=== PATIENT | male | born 1940 | race Caucasian/White ===

== ENCOUNTER 2016-12-19 08:54 | Emergency (ER) | payer OTHER ==
[~2016-12-19] VITALS: Ht 177.8 cm; Wt 113.2 kg
[2016-12-19] MEDS ORDERED: MAGN64TASA PO (09:14)
[2016-12-19] MEDS ORDERED: [UNRECOGNIZED DRUG - OTHER] PO (09:14)
[2016-12-19] MEDS ORDERED: METF500T13 PO (09:14)
[2016-12-19] MEDS ORDERED: HYDR10TAB PO (09:14)
[2016-12-19] MEDS ORDERED: FAMO40TA3 PO (09:14)
[2016-12-19] MEDS ORDERED: SERT50TA PO (09:14)
[2016-12-19] MEDS ORDERED: ISOS20TA PO (09:14)
[2016-12-19] MEDS ORDERED: ENTR1TAB PO (09:14)
[2016-12-19] MEDS ORDERED: SIMV40TA2 PO (09:14)
[2016-12-19] MEDS ORDERED: ASPI81TA21 PO (09:14)
--- NOTE | 2016-12-19 10:05 | REP ---
Left knee series: Five views. History: Trauma. Findings: Five views of the left knee demonstrate vascular calcification and some dystrophic periarticular calcification. No fracture or joint effusion is seen. Impression: No acute abnormality. Signed by Luis Antonio Nguyen MD 12/19/2016 11:03 A
[2016-12-19 10:23] VITALS: BP 106/53
== END 2016-12-19 10:30 | disposition home or self-care (01) ==
LOC: M ED 08:54
DX: S83.92XA Sprain of unspecified site of left knee, initial encounter (principal); S80.02XA Contusion of left knee, initial encounter; S80.212A Abrasion, left knee, initial encounter; W10.8XXA Fall (on) (from) other stairs and steps, initial encounter; Y92.099 Unspecified place in other non-institutional residence as the place of occurrence of the external cause; Y93.01 Activity, walking, marching and hiking; Y99.9 Unspecified external cause status

== ENCOUNTER 2017-09-26 09:26 | Day surgery (SDC) | payer OTHER ==
[2017-09-26] MEDS: PHENYLEPHRINE 2.5% OPHTH SOL 2ML OS (10:29)
[2017-09-26] MEDS: TROPICAMIDE 1% OPHTH SOLN 2ML OS (10:29)
[2017-09-26] MEDS: PROPARACAINE 0.5% OPHTH SOL 15ML OS (10:29)
[2017-09-26] MEDS: OFLOXACIN 0.3 % (OCUFLOX) OPTH SOL 5ML OS (10:29)
[2017-09-26 10:30] LABS: BEDSIDE GLUCOSE 105 MG/DL (83-110)
[2017-09-26] MEDS ORDERED: fentaNYL 100 MCG/2 ML INJECTION (J3010) As Ordered (11:33)
[2017-09-26] MEDS ORDERED: MIDAZOLAM INJ 2 MG/2 ML VIAL (J2250) As Ordered (11:33)
[2017-09-26] MEDS: POVIDONE-IODINE 5% OPHTH PREP SOL 30ML As Ordered (12:02)
[2017-09-26] MEDS: DUOVISC (0.50ML VISCOAT/0.55ML PROVISC) OPHTH KIT As Ordered (12:07)
[2017-09-26] MEDS: BALANCED SALT IRRIGATION SOLUTION 500ML BAG (FOR OR EYE MACHINE) As Ordered (12:07)
[2017-09-26] MEDS: LIDOCAINE 0.75%/EPINEPHRINE 0.025% IN BSS 1ML SYR INTRACAMERAL (OR ONLY) As Ordered (12:07)
[2017-09-26] MEDS: CEFUROXIME 1MG/0.1ML INTRACAMERAL INJ As Ordered (12:07)
== END 2017-09-26 12:50 | disposition home or self-care (01) ==
LOC: M SDC 09:26
DX: H25.12 Age-related nuclear cataract, left eye (principal); I11.9 Hypertensive heart disease without heart failure; I42.0 Dilated cardiomyopathy; I50.42 Chronic combined systolic (congestive) and diastolic (congestive) heart failure; I44.0 Atrioventricular block, first degree; R94.31 Abnormal electrocardiogram [ECG] [EKG]; I47.2 Ventricular tachycardia; I25.2 Old myocardial infarction; R29.898 Other symptoms and signs involving the musculoskeletal system; R06.02 Shortness of breath; E11.9 Type 2 diabetes mellitus without complications; M12.9 Arthropathy, unspecified; Z79.899 Other long term (current) drug therapy; Z79.82 Long term (current) use of aspirin; Z79.84 Long term (current) use of oral hypoglycemic drugs; Z95.810 Presence of automatic (implantable) cardiac defibrillator; Z95.0 Presence of cardiac pacemaker
CPT/HCPCS: 66984

== ENCOUNTER 2017-10-03 08:16 | Day surgery (SDC) | payer OTHER ==
[2017-10-03] MEDS: PROPARACAINE 0.5% OPHTH SOL 15ML OD (08:30)
[2017-10-03] MEDS: PHENYLEPHRINE 2.5% OPHTH SOL 2ML OD (08:35)
[2017-10-03] MEDS: TROPICAMIDE 1% OPHTH SOLN 2ML OD (08:40)
[2017-10-03] MEDS: OFLOXACIN 0.3 % (OCUFLOX) OPTH SOL 5ML OD (08:45)
[2017-10-03 09:08] LABS: BEDSIDE GLUCOSE 113 MG/DL (83-110)
[2017-10-03] MEDS ORDERED: fentaNYL 100 MCG/2 ML INJECTION (J3010) As Ordered (09:43)
[2017-10-03] MEDS ORDERED: MIDAZOLAM INJ 2 MG/2 ML VIAL (J2250) As Ordered (09:43)
[2017-10-03] MEDS: POVIDONE-IODINE 5% OPHTH PREP SOL 30ML As Ordered (10:17)
[2017-10-03] MEDS: LIDOCAINE 0.75%/EPINEPHRINE 0.025% IN BSS 1ML SYR INTRACAMERAL (OR ONLY) As Ordered (10:19)
[2017-10-03] MEDS: CEFUROXIME 1MG/0.1ML INTRACAMERAL INJ As Ordered (10:19)
[2017-10-03] MEDS: DUOVISC (0.50ML VISCOAT/0.55ML PROVISC) OPHTH KIT As Ordered (10:19)
[2017-10-03] MEDS: BALANCED SALT IRRIGATION SOLUTION 500ML BAG (FOR OR EYE MACHINE) As Ordered (10:19)
== END 2017-10-03 10:58 | disposition home or self-care (01) ==
LOC: M SDC 08:16
DX: H25.11 Age-related nuclear cataract, right eye (principal); I10 Essential (primary) hypertension; E11.9 Type 2 diabetes mellitus without complications; M12.9 Arthropathy, unspecified; I25.10 Atherosclerotic heart disease of native coronary artery without angina pectoris; I25.2 Old myocardial infarction; E78.5 Hyperlipidemia, unspecified; R29.898 Other symptoms and signs involving the musculoskeletal system; R06.02 Shortness of breath; I42.0 Dilated cardiomyopathy; I50.42 Chronic combined systolic (congestive) and diastolic (congestive) heart failure; I44.0 Atrioventricular block, first degree; I47.2 Ventricular tachycardia; R94.31 Abnormal electrocardiogram [ECG] [EKG]; E66.01 Morbid (severe) obesity due to excess calories; Z68.37 Body mass index [BMI] 37.0-37.9, adult; Z88.8 Allergy status to other drugs, medicaments and biological substances; Z79.899 Other long term (current) drug therapy; Z95.810 Presence of automatic (implantable) cardiac defibrillator; Z95.0 Presence of cardiac pacemaker
CPT/HCPCS: 66984

== ENCOUNTER 2018-01-27 09:41 | Emergency (ER) | payer OTHER ==
[2018-01-27] MEDS: ASPIRIN 81 MG CHEW TABLET PO (10:00)
[2018-01-27 10:18] LABS: BASO # 0.1 10^3/uL (0.0-0.2); BASO % 0.8 % (0.0-1.0); EOS # 0.2 10^3/uL (0.0-0.50); EOS % 3.5 % (0.0-3.0); HEMATOCRIT 33.4 % (42.0-52.0); IMMATURE GRANULOCYTE % 0.6 % (0-3.0); LYMPH # 1.5 10^3/uL (1.5-4.5); LYMPH % 24.1 % (24.0-44.0); MEAN CORPUSCULAR HEMOGLOBIN 29.4 pg (27.0-33.0); MEAN CORPUSCULAR HGB CONC 32.9 g/dl (32.0-36.5); MEAN CORPUSCULAR VOLUME 89.3 fl (80.0-96.0); MONO # 0.4 10^3/uL (0.0-0.8); MONO % 5.7 % (0.0-5.0); NEUTROPHILS # 4.1 10^3/uL (1.8-7.7); NEUTROPHILS % 65.3 % (36.0-66.0); PLATELET COUNT, AUTOMATED 196 10^3/uL (150-450); RED BLOOD COUNT 3.74 10^6/uL (4.30-6.10); RED CELL DISTRIBUTION WIDTH 14.3 % (11.5-14.5); WHITE BLOOD COUNT 6.3 10^3/uL (4.0-10.0)
[2018-01-27] MEDS: NITROGLYCERIN 0.4 MG SUBL TABLET SL (10:24)
[2018-01-27 10:37] LABS: INR 0.95; PARTIAL THROMBOPLASTIN TIME 28.2 SECONDS (25.4-37.6); PROTHROMBIN TIME 12.7 SECONDS (12.1-14.4)
[2018-01-27 10:46] LABS: ALBUMIN/GLOBULIN RATIO 0.83 (1.00-1.93); ALKALINE PHOSPHATASE 79 U/L (45-117); ALT/SGPT 18 U/L (12-78); ANION GAP 8 MEQ/L (8-16); AST/SGOT 13 U/L (7-37); BILIRUBIN,DIRECT 0.2 MG/DL (0.0-0.2); BILIRUBIN,TOTAL 0.7 MG/DL (0.2-1.0); BLOOD UREA NITROGEN 25 MG/DL (7-18); CALCIUM LEVEL 8.1 MG/DL (8.8-10.2); CARBON DIOXIDE LEVEL 24 MEQ/L (21-32); CHLORIDE LEVEL 114 MEQ/L (98-107); CK-MB VALUE MASS 1.3 NG/ML (<3.6); CPK CREATINE PHOSPHOKINASE 60 U/L (39-308); CREATININE FOR GFR 1.36 MG/DL (0.70-1.30); GLUCOSE, FASTING 111 MG/DL (70-100); LIPASE 129 U/L (73-393); MB/CK RELATIVE INDEX 2.16 (< OR =4); POTASSIUM SERUM 4.3 MEQ/L (3.5-5.1); SODIUM LEVEL 146 MEQ/L (136-145); TOTAL PROTEIN 6.6 GM/DL (6.4-8.2); TROPONIN I < 0.02 NG/ML (< 0.10)
[2018-01-27] MEDS ORDERED: ISOVUE-370 76% 100ML VIAL (Q9967) As Ordered (11:15)
[2018-01-27 16:21] LABS: CPK CREATINE PHOSPHOKINASE 132 U/L (39-308); TROPONIN I < 0.02 NG/ML (< 0.10)
[2018-01-27 16:22] LABS: CK-MB VALUE MASS 1.3 NG/ML (<3.6); MB/CK RELATIVE INDEX 0.98 (< OR =4)
== END 2018-01-27 17:41 | disposition home or self-care (01) ==
LOC: M ED 09:41
DX: R07.9 Chest pain, unspecified (principal); R94.31 Abnormal electrocardiogram [ECG] [EKG]; E11.9 Type 2 diabetes mellitus without complications; I10 Essential (primary) hypertension; E78.5 Hyperlipidemia, unspecified; K21.9 Gastro-esophageal reflux disease without esophagitis; N40.0 Benign prostatic hyperplasia without lower urinary tract symptoms; F33.9 Major depressive disorder, recurrent, unspecified; Z95.0 Presence of cardiac pacemaker; Z87.891 Personal history of nicotine dependence; Z88.8 Allergy status to other drugs, medicaments and biological substances; Z79.84 Long term (current) use of oral hypoglycemic drugs; Z79.899 Other long term (current) drug therapy; Z79.82 Long term (current) use of aspirin
CPT/HCPCS: Q9967

== ENCOUNTER 2018-11-23 19:39 | Inpatient (IN) | payer MEDICARE, OTHER ==
[~2018-11-23] VITALS: Ht 177.8 cm; Wt 111.4 kg
[~2018-11-23 19:39] MED LIST: ASPI81TA21 PO; CHLO125TA; ENTR1TAB PO; ENTR1TAB7 PO; FAMO40TA3 PO; HYDR10TAB PO; ISOS20TA PO; MAGN64TASA PO; METF500T13 PO; SERT-141 PO; SIMV40TA2 PO; VALS1TAB67; [UNRECOGNIZED DRUG - OTHER] PO
[2018-11-23] MEDS ORDERED: NS 500 ML IV ONE (21:00)
[2018-11-23 21:35] LABS: BASO # 0.1 10^3/uL (0.0-0.2); BASO % 0.9 % (0.0-1.0); EOS # 0.3 10^3/uL (0.0-0.50); EOS % 3.4 % (0.0-3.0); HEMATOCRIT 38.4 % (42.0-52.0); HEMOGLOBIN 12.5 g/dl (13.5-17.5); LYMPH # 2.5 10^3/uL (1.5-4.5); LYMPH % 32.8 % (24.0-44.0); MEAN CORPUSCULAR HEMOGLOBIN 28.8 pg (27.0-33.0); MEAN CORPUSCULAR HGB CONC 32.6 g/dl (32.0-36.5); MEAN CORPUSCULAR VOLUME 88.5 fl (80.0-96.0); MONO # 0.6 10^3/uL (0.0-0.8); MONO % 8.5 % (0.0-5.0); NEUTROPHILS # 4.1 10^3/uL (1.8-7.7); PLATELET COUNT, AUTOMATED 188 10^3/uL (150-450); RED BLOOD COUNT 4.34 10^6/uL (4.30-6.10); WHITE BLOOD COUNT 7.6 10^3/uL (4.0-10.0)
[2018-11-23 22:07] LABS: ALBUMIN 3.5 GM/DL (3.2-5.2); BILIRUBIN,DIRECT 0.2 MG/DL (0.0-0.2); BILIRUBIN,TOTAL 0.9 MG/DL (0.2-1.0); CALCIUM LEVEL 8.8 MG/DL (8.8-10.2); CREATININE FOR GFR 1.37 MG/DL (0.70-1.30); GLOMERULAR FILTRATION RATE 53.5 (>42); POTASSIUM SERUM 4.2 MEQ/L (3.5-5.1); TOTAL PROTEIN 6.5 GM/DL (6.4-8.2)
--- NOTE | 2018-11-23 22:46 | REPVR ---
EXAM: CT Abdomen and Pelvis Without Contrast EXAM DATE/TIME: 11/23/2018 9:09 PM CLINICAL HISTORY: 77 years old, male; Pain; Other: Suprapubic; Additional info: Dysuria, known stone, suprapubic pain TECHNIQUE: Imaging protocol: Axial computed tomography images of the abdomen and pelvis without contrast. Coronal and sagittal reformatted images were created and reviewed. Radiation optimization: All CT scans at this facility use at least one of these dose optimization techniques: automated exposure control; mA and/or kV adjustment per patient size (includes targeted exams where dose is matched to clinical indication); or iterative reconstruction. COMPARISON: No relevant prior studies available. FINDINGS: Small calcified granuloma at the left lung base. Lung bases are otherwise clear. No pleural or pericardial effusion. Within the limits of unenhanced examination, the liver, spleen, pancreas and adrenals are grossly normal. Gallbladder is somewhat contracted. There is a calcified gallstone in the dependent portion of the gallbladder lumen measuring up to [address] evidence of cholecystitis. There is asymmetric right perinephric stranding. There is moderate asymmetric hydronephrosis of the right intrarenal collecting system and right ureter. Findings are due to at least a partially obstructing urolith at the right ureterovesical junction measuring up to 4.5 mm in diameter. Probable peripelvic cysts in the left kidney. Cortical cyst in the left kidney measuring up to 3.6 cm. Nonobstructing calcification within a left lower pole renal calyx measuring less than 4 mm. No evidence of left ureterolithiasis or obstructive uropathy. Atherosclerotic changes identified within the abdominal aorta and aortic branch vessels with no evidence of aneurysmal dilatation. Small bowel loops are grossly normal. There are left-sided colonic diverticular changes. No evidence of enteric obstruction or diverticulitis. Pelvic organs are grossly normal. No free fluid in the pelvis. Central and anterior compression deformity of L3 with loss of vertebral body height of approximately 40%. Acuity cannot be determined with certainty. Osseous structures are otherwise unremarkable for age. IMPRESSION: Moderate asymmetric right perinephric stranding and right hydronephrosis. Findings are due to at least a partially obstructing urolith at the right UVJ measuring up to 4.5 mm. Nonobstructing calculus within a left lower pole renal calyx. No evidence of left obstructive uropathy. Moderate colonic diverticular changes with no evidence of diverticulitis. Cholelithiasis with no CT evidence of cholecystitis. Electronically signed by: Austen Sultana On 11/23/2018 22:46:41 PM
[2018-11-23] MEDS ORDERED: DEXTROSE 50% 50 ML SYRINGE IV PRN (23:00)
[2018-11-23] MEDS ORDERED: GLUCAGON FOR INJ 1 MG VIAL (J1610) SC PRN (23:00)
[2018-11-23] MEDS ORDERED: ACETAMINOPHEN TAB 650MG DOSE (2X325MG) PO PRN (23:00)
[2018-11-23] MEDS ORDERED: GLUCOSE 4 GM CHEW TABLET PO PRN (23:00)
[2018-11-23] MEDS: NS 1,000 ML IV SCH (23:32)
[2018-11-24] VITALS (9 sets, daily range): BP systolic 137–173; BP diastolic 66–85
[2018-11-24] MEDS: NS 1,000 ML IV SCH ×3 (01:47→21:05)
[2018-11-24] MEDS: CIPROFLOXACIN 200 MG in APPROPRIATE DILUENT 1 EA IV SCH ×2 (01:48→12:32)
[2018-11-24] MEDS: HEPARIN SOD (PORCINE) 5000 UNITS/ML VIAL SC SCH ×2 (06:00→18:00)
--- NOTE | 2018-11-24 06:02 | ECGEPIP ---
[facility] - ED Test Date: 2018-11-23 Pat Name: AUTSIN LEAVITT Department: Room: - Gender: Male Housing Development Specialist: KK : [id number] Requested By: PATRICE PORTER PA-C. Order Number: [id number] Reading MD: Bob Serrano Measurements Intervals [place] Rate: 61 P: AR: -1 QRS: QRSD: 106 T: QT: 398 QTc: 402 Interpretive Statements SINUS RHYTHM WITH FIRST DEGREE AV BLOCK BORDERLINE LEFT AXIS DEVIATION POSSIBLE PRIOR ANTERIOR INFARCT NONSPECIFIC ST & T-WAVE ABNORMALITY SIMILAR TO 01/27/18 Electronically Signed on 11-24-2018 6:02:04 EDT by Bob Serrano
[2018-11-24] MEDS: HumaLOG INSULIN (NovoLOG) PER UNIT SC SCH ×3 (07:30→17:30)
--- NOTE | 2018-11-24 07:51 | HPE ---
DATE OF ADMISSION: 11/23/2018 PRIMARY CARE PROVIDER: Dr. Mccoy VP CORPORATE DEVELOPMENT: Dr. Casas CHIEF COMPLAINT: Hematuria. HISTORY OF PRESENT ILLNESS: Patient is a 77-year-old white male with several chronic medical conditions listed below who came to the hospital for evaluation of hematuria. History provided by himself as well as his . Per the patient, back to September he developed right flank pain and he went to [facility] and he had a CT scan done which demonstrated he had a right ureteral stone. Since then, he is following with urologist Dr. Celaya. Since he was asymptomatic, he did not go for any procedures. However, after a few days he had some mild right flank pain. Today he has some blood in his urine and decided to come to the ER for further evaluation. In the ER, he had a CT of the abdomen and pelvis done which demonstrated he had some stones in his right ureter. Urology was consulted in the ER. The medicine team was requested to admit him. REVIEW OF SYSTEMS: Denies fevers. No chills. No headache. No blurry vision. No shortness of breath. No chest pain. No nausea. No vomiting. No diarrhea. No abdominal pain. All other systems were reviewed, but were negative. PAST MEDICAL HISTORY: 1. Hypertension. 2. Type 2 diabetes. 3. Dyslipidemia. 4. Coronary artery disease (CAD). PAST SURGICAL HISTORY: 1. Status post appendectomy. 2. Kidney stone removal. 3. Pacemaker and defibrillator placed. He follows up with Dr. Casas. ALLERGIES: No known drug allergies. MEDICATIONS: Reviewed. FAMILY HISTORY: His father had a history of type 2 diabetes. PHYSICAL EXAMINATION: VITAL SIGNS: Temperature 97.2, heart rate 62, respiratory rate 18, blood pressure 160/74, oxygen saturation 98% on room air. GENERAL: He is awake, alert and oriented times three. He is not in acute distress. HEENT: Atraumatic. Pupils equal, round, and reactive to light. No jaundice. Extraocular muscles intact. Ears, nose and throat are normal. Mouth mucous not dry. NECK: No jugular venous distention (JVD). No bruits. LUNGS: Clear, no wheezing, no crackles. HEART: S1, S2 regular, no murmur. ABDOMEN: Soft. Bowel sounds positive. Nontender. LOWER EXTREMITIES: No edema in bilateral lower extremities. NEUROLOGIC: Nonfocal. SKIN: No rash. PSYCHIATRIC: No acute psychosis. DIAGNOSTIC LABORATORY STUDIES: Including the following CBC with differential WBC 7.6, hemoglobin and hematocrit 12.3/38, platelets 188. Sodium 142, potassium 4.2, BUN 26, creatinine 1.3, glucose 113. IMPRESSION: 1. Right ureteral stone with hematuria. 2. Hypertension. 3. Dyslipidemia. 4. Type 2 diabetes. 5. Status post pacemaker and defibrillator implant. PLAN: Patient will be admitted to the medical/surgical floor. I will continue his regular medications. Will keep him nothing by mouth and gently hydrate with normal saline with IV Cipro. Urologist plans to do cystoscope and ureter stenting tomorrow. OBIE
[2018-11-24] MEDS ORDERED: PROPOFOL 200 MG/20 ML VIAL As Ordered ONE (10:29)
[2018-11-24] MEDS ORDERED: fentaNYL 100 MCG/2 ML INJECTION (J3010) As Ordered ONE (10:29)
[2018-11-24] MEDS ORDERED: ONDANSETRON 4MG/2ML VIAL (J2405) As Ordered ONE (10:29)
[2018-11-24] MEDS ORDERED: dexameTHASONE 4 MG/ML 1ML VIAL (J1100) As Ordered ONE (10:29)
[2018-11-24] MEDS ORDERED: LIDOCAINE 2% INJ 100 MG/5 ML SDV (FOR ANES.) As Ordered ONE (10:29)
[2018-11-24] MEDS ORDERED: ROCURONIUM BROMIDE 50 MG/5 ML VIAL As Ordered ONE (10:29)
[2018-11-24] MEDS ORDERED: MIDAZOLAM INJ 2 MG/2 ML VIAL (J2250) As Ordered ONE (10:30)
--- NOTE | 2018-11-24 12:04 | IPNPDOC ---
Date Seen The patient was seen on 11/24/18. Progress Note SUBJECTIVE: Mr. Mohamud is a 77-year-old male who presented with gross hematuria. He is seen on bedside rounds this morning. He states that he is having little to no pain this morning, he only reports pressure and diffuse discomfort in his lower abdomen/bladder region. The pain is much improved from yesterday on admission. Patient denies visible blood in his urine today. He also reports orthostatic hypotension and dizziness when he stands up quickly. He denies cp, sob, nausea, vomiting, diarrhea, blood in his stool, headache, fever, chills and abdominal pain. Retrograde pyelogram scheduled for this afternoon. OBJECTIVE PHYSICAL EXAMINATION: VITAL SIGNS: Please see below. GENERAL: Patient is seen sitting pleasantly in bed. In no apparent distress. AAOx3, speaking in complete sentences. He is a little hard of hearing. HEENT: Moist mucous membranes, EOMI, No JVD appreciated CARDIOVASCULAR: S1 S2 regular no additional heart sounds appreciated RESPIRATORY: Clear to auscultation bilaterally, no wheezing, rales or rhonchi appreciated ABDOMINAL: Bowel sounds present x4 abdomen. Abdomen soft, no tenderness to palpation, rebound, rigidity, or guarding., no hepatosplenomegaly or masses appreciated. EXTREMITIES: No clubbing cyanosis or edema NEUROLOGICAL: Spontaneously moves all 4 extremities, no focal deficits. PSYCHOLOGICAL: Appropriate affect LABORATORY DATA, IMAGING STUDIES, MICROBIOLOGY: Please see below. CT Abdomen and Pelvis: - Moderate asymmetric right perinephric stranding and right hydronephrosis. Findings are due to at least a partially obstructing urolith at the right UVJ measuring up to 4.5 mm. - Nonobstructing calculus within a left lower pole renal calyx. No evidence of left obstructive uropathy. - Moderate colonic diverticular changes with no evidence of diverticulitis. -Cholelithiasis with no CT evidence of cholecystitis. DVT prophylaxis ordered?: Heparin ASSESSMENT AND PLAN: This is a 77-year-old male that presents with right ureteral stone PROBLEMS: 1. Right ureteral stone with hematuria - Retrograde pyelogram scheduled for this afternoon - Continue with IVF and Cipro 2. Hypertension 3. Dyslipidemia 4. DM Type 2 - c/w Insulin Lispro 5. S/p pacemaker and defibrillator implant DISPOSITION: Patient is waiting to have retrograde pyelogram done this afternoon. He reports little to no pain today which is an improvement from admission. Continue with IVF and Cipro today. VS[facility]O Vital Signs Date Time Temp Pulse Resp B/P (MAP) Pulse Ox O2 Delivery O2 Flow Rate FiO2 11/24/18 06:00 97.0 73 20 155/85 (108) 97 11/24/18 00:12 Room Air I&O- Last 24 Hours up to 6 AM 11/24/18 06:00 Intake Total 700 ml Output Total 200 ml Balance 500 ml Laboratory Data 24H LABS Laboratory Tests 2 11/23/18 21:09: Immature Granulocyte % (Auto) 0.4, White Blood Count 7.6, Red Blood Count 4.34, Hemoglobin 12.5L, Hematocrit 38.4L, Mean Corpuscular Volume 88.5, Mean Corpuscular Hemoglobin 28.8, Mean Corpuscular Hemoglobin Concent 32.6, Red Cell Distribution Width 13.9, Platelet Count 188, Neutrophils (%) (Auto) 54.0, Lymphocytes (%) (Auto) 32.8, Monocytes (%) (Auto) 8.5H, Eosinophils (%) (Auto) 3.4H, Basophils (%) (Auto) 0.9, Neutrophils # (Auto) 4.1, Lymphocytes # (Auto) 2.5, Monocytes # (Auto) 0.6, Eosinophils # (Auto) 0.3, Basophils # (Auto) 0.1, Nucleated Red Blood Cells % (auto) 0.0, Urine Color YELLOW, Urine Appearance HAZY, Urine pH 5.0, Urine Specific [place] 1.020, Urine Protein 1+H, Urine Glucose (UA) NEGATIVE, Urine Ketones NEGATIVE, Urine Blood 3+H, Urine Nitrite NEGATIVE, Urine Bilirubin NEGATIVE, Urine Urobilinogen 0.2, Urine Leukocyte Esterase TRACEH, Urine WBC (Auto) 14H, Urine RBC (Auto) TNTCH, Urine Hyaline Casts (Auto) 0, Urine Bacteria (Auto) NEGATIVE, Urine Squamous Epithelial Cells 0, Urine Transitional Epithelial Cells <1, Urine Mucus (Auto) SMALL, Urine Sperm (Auto) , Anion Gap 5L, Glomerular Filtration Rate 53.5, Calcium Level 8.8, Aspartate Amino Transf (AST/SGOT) 15, Alanine Aminotransferase (ALT/SGPT) 16, Alkaline Phosphatase 75, Total Bilirubin 0.9, Direct Bilirubin 0.2, Total Protein 6.5, Albumin 3.5, Albumin/Globulin Ratio 1.17 11/24/18 05:38: Bedside Glucose (Misc Panel) 114H 11/24/18 11:31: Bedside Glucose (Misc Panel) 91 CBC/BMP Laboratory Tests 11/23/18 21:09 Red Blood Count 4.34, Mean Corpuscular Volume 88.5, Mean Corpuscular Hemoglobin 28.8, Mean Corpuscular Hemoglobin Concent 32.6, Red Cell Distribution Width 13.9, Neutrophils (%) (Auto) 54.0, Lymphocytes (%) (Auto) 32.8, Monocytes (%) (Auto) 8.5 H, Eosinophils (%) (Auto) 3.4 H, Basophils (%) (Auto) 0.9, Neutrophils # (Auto) 4.1, Lymphocytes # (Auto) 2.5, Monocytes # (Auto) 0.6, Eosinophils # (Auto) 0.3, Basophils # (Auto) 0.1 Microbiology Microbiology 11/23/18 Urine Culture, Received Pending GME ATTESTATION GME ATTESTATION My faculty preceptor for this patient encounter was physically present during the encounter and was fully available. All aspects of the patient interview, examination, medical decision making process, and medical care plan development were reviewed and approved by the faculty preceptor. The faculty preceptor is aware and concurs with the plan as stated in the body of this note and will attest to such by his/her cosignature. ATTENDING NOTE i have personally interviewed and examined the patient and discussed the plan of care with the resident / medical student . i agree with the above documentation with the following addendums Patient has AICD in place and after discussion with patient and seems like he has diastolic and systolic CHF, has CAD but no stents in aime past. He also has long history of renal stones with lithotripsy once in the past. Pateint follows with Dr Casas and the AICD was placed in 2015 and most recently interrogated in October. Will continue with IVF. Post procedure will monitor intake and output carefully to avoid fluid overload and acute exacerbation of CHF. Will hold metformin in hospital and give lispro sliding scale restart hydralazine and isosorbide after procedure and entresto tomorrow AMEYA ABREU S-3 Nov 24, 2018 12:04 CONRAD CARVER MD Nov 24, 2018 15:27
--- NOTE | 2018-11-24 13:08 | CR ---
DATE OF CONSULTATION: 11/23/2018 REASON FOR CONSULTATION: Distal right ureteral calculus. Edvin Mohamud is a 77-year-old male who presented to the emergency room today with worsening of his right sided flank pain due to a previously diagnosed right ureteral calculus that was being managed conservatively for over 2 months by his urologist in [place]. The patient came in today with worsening pain down in the suprapubic area and radiating down into his right testicle. CT scan of the abdomen was performed revealing a 6.7 mm right ureterovesical junction calculus with proximal hydronephrosis. The patient is being admitted for pain management and probable surgical intervention. PAST MEDICAL HISTORY: Significant for some cardiac disease with a pacemaker defibrillator having been placed, hypercholesterolemia, hypertension, type 2 diabetes. MEDICATIONS ON ADMISSION: Include aspirin, hydralazine, isosorbide, metformin, simvastatin. ALLERGIES: He claims to be allergic to CYCLOBENZAPRINE. PHYSICAL EXAMINATION: He is a fairly well appearing male in no acute distress. His abdomen is somewhat protuberant. He is tender in the right lower quadrant. There is no evidence of any rebound or guarding. There are no palpable masses. He has some moderate right costovertebral angle (CVA) tenderness. The remainder of his examination is unremarkable. LABORATORY STUDIES: Reveal a hematocrit of 38.4, with a hemoglobin of 12.5, and white cell count of 7.6. BUN and creatinine 26 over 1.37. ASSESSMENT: Distal right ureteral calculus with persistent pain of two months duration. PLAN: To admit the patient and start him on antibiotics and fluids. Will take him to the operating room tomorrow for ureteroscopy with laser lithotripsy. Please note, I had a discussion with the patient and his who are somewhat leery about having this done away from home, but by the same token are very concerned because they are bothered by their urologist's busy schedule and inability to address the matter which has been going on for over two months. I discussed with them the risks of the procedure including, but not limited to bleeding, infection, pain, inability to get a wire to the stone or proximal to the stone, proximal migration of the stone, need for a stent postoperatively. I have also offered them conservative management with fluids, antibiotics and pain medicine on an outpatient basis, at which point, they can either contact our office or followup with their local urologist. They are eager to have the problem taken care of and have chosen to have the procedure done in the morning. Will plan on doing it first thing if at all possible.
[2018-11-24] MEDS ORDERED: ETOMIDATE INJ 20MG/10ML VIAL As Ordered ONE (13:34)
[2018-11-24] MEDS ORDERED: SUGAMMADEX SODIUM 500 MG/5 ML VIAL (BRIDION) As Ordered ONE (14:28)
[2018-11-24] MEDS ORDERED: LR 1,000 ML IV SCH (15:15)
[2018-11-24] MEDS ORDERED: fentaNYL 100 MCG/2 ML INJECTION (J3010) IV PRN (15:15)
[2018-11-24] MEDS ORDERED: ONDANSETRON 4MG/2ML VIAL (J2405) IV PRN (15:15)
[2018-11-24] MEDS ORDERED: PHENAZOPYRIDINE 100 MG TAB PO ONE (15:30)
[2018-11-24] MEDS: ISOSORBIDE MON. (ISMO,MONOKET) 20 MG TAB PO SCH (16:00)
[2018-11-24] MEDS ORDERED: PHENAZOPYRIDINE 100 MG TAB PO PRN (16:15)
[2018-11-24] MEDS ORDERED: HumaLOG INSULIN (NovoLOG) PER UNIT SC SCH (21:00)
[2018-11-24] MEDS ORDERED: SIMVASTATIN 40 MG TAB PO SCH (21:00)
[2018-11-24] MEDS: **hydrALAZINE** 10 MG TAB PO SCH (21:04)
[2018-11-25] MEDS: CIPROFLOXACIN 200 MG in APPROPRIATE DILUENT 1 EA IV SCH ×2 (00:18→11:27)
[2018-11-25 00:30] VITALS: BP 137/75
--- NOTE | 2018-11-25 00:30 | RO ---
DATE OF PROCEDURE: 11/24/2018 PREPROCEDURE DIAGNOSIS: Distal right ureteral calculus. POSTPROCEDURE DIAGNOSIS: Distal right ureteral calculus. PROCEDURE: Cystoscopy, right ureteroscopy with laser lithotripsy, right double J stent placement. SURGEON: George Gómez MD COVER CUTTER: ANESTHESIA: General via endotracheal tube. DESCRIPTION OF PROCEDURE: The patient was brought to the operating room, placed on the operating room table in the supine position. After induction of adequate anesthesia, the patient was placed in the dorsal lithotomy position, his lower abdomen and genitalia were prepped and draped in the usual sterile manner. All appropriate pressure points were padded. Cystopanendoscopy was performed using the rigid 21-Scottish cystoscope sheath with 30- and 70-degree lenses. The urethra was without stricture, the prostate roughly 3.5 cm in length and occlusive with bilobar hypertrophy. The bladder itself was 1 to 2+ trabeculated without any evidence of cellules or diverticula. There was a small amount of blood within the bladder. No tumors were noted. There was no efflux of urine from the right orifice, which was normal in location and configuration. A 0.038 wire was passed up the right orifice with a little bit of resistance met just inside of the orifice, but the wire was able to be negotiated into the renal pelvis. Without the need for balloon dilatation, the rigid ureteroscope was passed alongside the wire and the previously diagnosed impacted stone was immediately encountered. The laser fiber was deployed, and the stone fragmented completely into particles clearly small enough to pass, though there was one fragment that migrated proximally, and this fragment was basketed and dropped into the bladder, still clearly small enough to pass. The ureteroscope was removed, and a 6-Scottish [place] ureteral stent was passed over the wire into the renal pelvis without any difficulty. The bladder was decompressed with the cystoscope sheath with a small number of stone particles retrieved and sent for specimen and analysis. The procedure was then terminated. The patient tolerated the procedure well, was transported in stable condition to recovery.
[2018-11-25 01:59] VITALS: BP 156/65
[2018-11-25] MEDS: HEPARIN SOD (PORCINE) 5000 UNITS/ML VIAL SC SCH (05:48)
[2018-11-25 06:00] VITALS: BP 135/77
[2018-11-25] MEDS: HumaLOG INSULIN (NovoLOG) PER UNIT SC SCH ×2 (07:56→11:27)
[2018-11-25] MEDS: ISOSORBIDE MON. (ISMO,MONOKET) 20 MG TAB PO SCH (07:56)
[2018-11-25 07:57] VITALS: BP 135/77
[2018-11-25] MEDS: **hydrALAZINE** 10 MG TAB PO SCH (07:57)
[2018-11-25 10:00] VITALS: BP 122/68
[2018-11-25] MEDS ORDERED: CEFD1CAP8 PO ×2 (10:41→11:11)
[2018-11-25] MEDS ORDERED: PHEN-593 PO ×2 (10:41→11:11)
--- NOTE | 2018-11-25 14:58 | DS.PDOC ---
Discharge Summary General Date of Admission Nov 23, 2018 at 22:48 Date of Discharge Nov 25, 2018 Attending Physician: FARA BARAKAT MD Discharge Summary DISCHARGE DIAGNOSIS: 1. Right ureteral stone, with right sided hydronephrosis, requiring intervention (cystoscopy and stent placement) SECONDARY DIAGNOSIS: 1. Hypertension 2. Dyslipidemia 3. DM Type 2 4. S/p pacemaker and defibrillator implant 5. Coronary artery disease PROCEDURES PERFORMED DURING STAY: Right ureteral stent placement on 11/24 CONSULTANTS: Urology HOSPITAL COURSE: Patient is a 77-year-old white male who came to the hospital for evaluation of gross hematuria. History provided by himself as well as his . The patient developed right flank pain in September of this year and went to [facility]. They performed a CT scan which demonstrated a right ureteral stone. Since the, he has been following with urologist Dr. Celaya. Since he was asymptomatic, he did not go for any procedures. However, after a few days he had some mild right flank pain. He noticed some blood in his urine on 11/23 and decided to some into the ER for further evaluation. In the ER, he had a CT of the abdomen and pelvis which demonstrated he had stones in his right ureter. Urology was consulted in the ER and the medicine team was requested to admit him. The patient was started on IVF and IV Cipro. He underwent ureteroscopy with laser lithotripsy and a right ureteral stent was placed on 11/24. The procedure went well with no complications. Patient was able to tolerate diet and reported some continued burning on urination & blood in his urine which was improving to more clear urine, and mild soreness of the right flank this morning. Patient remained afebrile and denied cp, sob, nausea, vomiting, change in bowel habits, or headache. Patient will be discharged home on Cefdinir. He is eager to go home and feels well enough to do so today. DISCHARGE MEDICATIONS: Please see below. ALLERGIES: Please see below. SUBJECTIVE: Mr. Mohamud is a 77-year-old male who presented with gross hematuria. He is seen on bedside rounds this morning. He states that he is having little to no pain this morning, he only reports pressure and diffuse discomfort in his lower abdomen/bladder region. He also reports some right sided soreness after his ureteral stent placement yesterday. He stated that the procedures went well without complications. He reports some dysuria and burning on urination with visible blood in his urine. The blood in his urine is improved from the gross hematuria on admission. He also reports orthostatic hypotension and dizziness when he stands up quickly. He denies cp, sob, nausea, vomiting, diarrhea, blood in his stool, headache, fever, chills and abdominal pain. OBJECTIVE: PHYSICAL EXAMINATION ON DISCHARGE: VITAL SIGNS: Please see below. GENERAL: Patient is seen sitting pleasantly in bed. In no apparent distress. AAOx3, speaking in complete sentences. He is a little hard of hearing. HEENT: Moist mucous membranes, EOMI, No JVD appreciated CARDIOVASCULAR: S1 S2 regular no additional heart sounds appreciated RESPIRATORY: Clear to auscultation bilaterally, no wheezing, rales or rhonchi appreciated ABDOMINAL: Bowel sounds present x4 abdomen. Abdomen soft, a small amount of pressure and soreness noted on palpation of right flank, denies pain on light or deep palpation in left upper and lower quadrants, no rebound, rigidity, or guarding., no hepatosplenomegaly or masses appreciated. EXTREMITIES: No clubbing cyanosis or edema NEUROLOGICAL: Spontaneously moves all 4 extremities, no focal deficits. PSYCHOLOGICAL: Appropriate affect LABORATORY DATA: Please see below. IMAGING: CT Abdomen and Pelvis: - Moderate asymmetric right perinephric stranding and right hydronephrosis. Findings are due to at least a partially obstructing urolith at the right UVJ measuring up to 4.5 mm. - Nonobstructing calculus within a left lower pole renal calyx. No evidence of left obstructive uropathy. - Moderate colonic diverticular changes with no evidence of diverticulitis. -Cholelithiasis with no CT evidence of cholecystitis. DVT prophylaxis ordered?: Heparin ASSESSMENT AND PLAN: This is a 77-year-old male that presents with right ureteral stone PROBLEMS: 1. Right ureteral stone with hematuria 2. Hypertension 3. Dyslipidemia 4. DM Type 2 5. S/p pacemaker and defibrillator implant 6. Coronary Artery Disease PROGNOSIS: Favorable ACTIVITY: As prior to admission DIET: As prior to admission DISPOSITION: Patient is clinically improving in terms of dysuria and hematuria. He states that his stent placement went well with no complications. He will be sent home on Cefdinir after discharge. Patient is eager to go home and feels well enough to do so. FOLLOWUP: 1. With PCP and Urology within 7-10 days after discharge 2. Remain compliant with treatment plan and medications 3. Return to the ER if you experience any problems DISCHARGE CONDITION: Stable and Improved TIME SPENT ON DISCHARGE: 35 minutes. Vital Signs/I&Os Vital Signs Date Time Temp Pulse Resp B/P (MAP) Pulse Ox O2 Delivery O2 Flow Rate FiO2 11/25/18 10:00 97.6 75 16 122/68 (86) 94 11/24/18 14:40 2 11/24/18 00:12 Room Air I&O- Last 24 Hours up to 6 AM 11/25/18 06:00 Intake Total 1500 ml Output Total 500 ml Balance 1000 ml Laboratory Data Labs 24H Laboratory Tests 2 11/24/18 15:37: Bedside Glucose (Misc Panel) 124H 11/24/18 20:09: Bedside Glucose (Misc Panel) 189H 11/25/18 05:07: Bedside Glucose (Misc Panel) 137H FSBS Laboratory Tests Test 11/24/18 15:37 11/24/18 20:09 11/25/18 05:07 Range/Units Bedside Glucose (Misc Panel) 124 189 137 83-110 MG/DL Microbiology Microbiology 11/23/18 Urine Culture - Final, Complete Discharge Medications Scheduled Aspirin (Aspir-Low) 81 Mg Tab, 81 MG PO Q2D, (Reported) Cefdinir (Cefdinir) 300 Mg Capsule, 300 MG PO Q12H Hydralazine HCl (Hydralazine HCl) 10 Mg Tab, 10 MG PO BID, (Reported) Isosorbide Mononitrate (Isosorbide Mononitrate) 20 Mg Tab, 20 MG PO BID, (Reported) Magnesium Chloride (Mag64) 64 Mg Tabcr, 64 MG PO BID, (Reported) Metformin HCl (Metformin HCl) 500 Mg Tab, 500 MG PO BID, (Reported) Sacubitril/Valsartan (Entresto 49 mg-51 mg Tablet) 1 Tab Tab, 1 TAB PO BID, (Reported) Simvastatin (Simvastatin) 40 Mg Tab, 40 MG PO QHS, (Reported) Scheduled PRN Phenazopyridine HCl (Phenazopyridine HCl) 100 Mg Tablet, 200 MG PO TIDP PRN for FOR COMFORT Allergies Coded Allergies: cyclobenzaprine (Verified Allergy, Unknown, 11/23/18) GME ATTESTATION GME ATTESTATION My faculty preceptor for this patient encounter was physically present during the encounter and was fully available. All aspects of the patient interview, examination, medical decision making process, and medical care plan development were reviewed and approved by the faculty preceptor. The faculty preceptor is aware and concurs with the plan as stated in the body of this note and will attest to such by his/her cosignature. ATTENDING NOTE I, Fara Barakat, have both independently examined this patient as well as reviewed the documentation. I have discussed in detail with the resident the findings and plan of treatment as documented in the residents documentation and I agree with what is stated. I will continue to follow the patient and offer further guidance to the patients care as necessary during this hospital stay. Time spent on discharge: - 37 minutes AMEYA ABREU OMS-3 Nov 25, 2018 14:58 MEHDI NIELSEN DO Nov 25, 2018 18:30 FARA BARAKAT MD Nov 25, 2018 20:38
== END 2018-11-25 11:50 | disposition home or self-care (01) | DRG 661 ==
LOC: M ED 19:39 → M ED INP 22:48 → M MSPAV 11-24 00:37
PROVIDERS: ADMIT Hospitalist; ATTEND Internal Medicine
PROC: 0TC68ZZ Extirpation of Matter from Right Ureter, Via Natural or Artificial Opening Endoscopic (ICD-10-PCS; 2018-11-24)
PROC: 0T768DZ Dilation of Right Ureter with Intraluminal Device, Via Natural or Artificial Opening Endoscopic (ICD-10-PCS; principal; 2018-11-24 13:00)
DX: N13.1 Hydronephrosis with ureteral stricture, not elsewhere classified (principal); I10 Essential (primary) hypertension; E11.9 Type 2 diabetes mellitus without complications; E78.5 Hyperlipidemia, unspecified; I25.10 Atherosclerotic heart disease of native coronary artery without angina pectoris; Z90.49 Acquired absence of other specified parts of digestive tract; Z95.810 Presence of automatic (implantable) cardiac defibrillator; Z79.4 Long term (current) use of insulin; Z79.899 Other long term (current) drug therapy

== ENCOUNTER → 2020-05-04 | Outpatient (REF) | payer MEDICARE ==
[~2020-05-04] MED LIST changes: +CEFD1CAP8 PO; +PHEN-593 PO; -SIMV40TA2 PO; +SIMV40TA20 PO
== END ==
LOC: M LAB REF 16:04
PROVIDERS: ATTEND Surgery
DX: C44.519 Basal cell carcinoma of skin of other part of trunk (principal)